=== PATIENT | female | born 1990 | race Caucasian/White ===

== ENCOUNTER → 2019-04-16 14:24 | Outpatient (CLI) | payer OTHER, SELFPAY ==
[2019-04-16 14:44] LABS: Add Manual Diff / Slide Review NO; Basophils Absolute Auto 100 /uL (0-100); Basophils Percent Auto 0.8 % (0-2); Eosinophils Absolute Auto 100 /uL (0-450); Eosinophils Percent Auto 1.1 % (2-4); Hematocrit 40.9 % (36-46); Hemoglobin 13.4 g/dL (12.0-16.0); Lymphocytes Absolute Auto 2400 /uL (1100-4500); Lymphocytes Percent Auto 21.2 % (25-40); Mean Corpuscular HGB Conc 32.8 % (30-36); Mean Corpuscular Hemoglobin 27.2 PG (26-34); Mean Corpuscular Volume 82.9 fL (80-100); Monocytes Absolute Auto 700 /uL (0-900); Monocytes Percent Auto 6.4 % (3-14); Neutrophils Absolute Auto 7900 /uL (1500-7000); Neutrophils Percent Auto 70.5 % (50-75); Platelet Count 389 X10^3/uL (150-400); Red Blood Cell Count 4.94 X10^6/uL (4.0-5.2); Red Cell Distribution Width 20.3 % (11.6-14.8); White Blood Cell Count 11.2 X10^3/uL (4.5-11.0)
[2019-04-16 14:52] LABS: Alanine Aminotransferase 36 IU/L (<35); Albumin 4.4 g/dL (3.5-5.0); Albumin Globulin Ratio 1.5 (1.0-2.8); Alkaline Phosphatase 99 U/L (38-126); Aspartate Aminotransferase 28 IU/L (14-36); BUN Creatinine Ratio 21.3 (6-22); Bilirubin Total 0.4 mg/dL (0.2-1.3); Blood Urea Nitrogen 17 mg/dL (7-17); Calcium 9.4 mg/dL (8.4-10.2); Carbon Dioxide 29 mmol/L (22-32); Chloride 102 mmol/L (98-107); Estimated Glomerular Filt Rate > 60.0 mL/min (>60); Globulin 2.9 g/dL (1.7-4.1); Glucose 106 mg/dL (70-100); HEMOLYSIS < 15 (0-50); Potassium 3.8 mmol/L (3.4-5.1); Sodium 138 mmol/L (137-145); Total Protein 7.3 g/dL (6.3-8.2)
[2019-04-16 15:11] LABS: Anisocytosis 2+; HEMOLYSIS 33 (0-50); Hypochromasia 1+; Iron 79 ug/dL (37-170)
[2019-04-16 15:21] LABS: Percent Iron Saturation 17 % (15-50); Total Iron Binding Capacity 455 ug/dL (265-497); Transferrin 391 mg/dL (206-381)
[2019-04-16 15:27] LABS: Ferritin 11.2 ng/mL (6.27-137)
== END ==
PROVIDERS: PCP Physician Assistant; Visit Provider Internal Medicine Hematology & Oncology
DX: D50.9 Iron deficiency anemia, unspecified (principal)
CPT/HCPCS: 36415; 80053; 82728; 83540; 83550; 85025

== ENCOUNTER 2019-05-05 18:24 | Emergency (ER) | payer OTHER, SELFPAY ==
[2019-05-05 18:30] VITALS: BP 145/97; PULSE 73; RESP 20; TEMP 36.7; O2SAT 100
--- NOTE | 2019-05-05 18:57 | ED.GENADULT ---
HPI - General Adult General Chief complaint: Vaginal Bleeding Stated complaint: Vaginal bleeding x10 days Time Seen by Provider: 05/05/19 18:36 Source: patient Mode of arrival: Ambulatory Limitations: no limitations History of Present Illness HPI narrative: 29-year-old female here for evaluation approximately 10 days of vaginal bleeding. She states that it is heavy bleeding. Having to change a pad every several hours. She states she has had heavy abnormal vaginal bleeding in the past where her blood counts have dropped. She states she has never had a blood transfusion because of this. She is not currently on control. States she has been on control in the past but it was ?too strong for me ?her last menstrual cycle was several months ago. States she is normally very abnormal with her menses. Has an appointment with shuttle car operator next week. Related Data Home Medications Medication Instructions Recorded Confirmed ferrous sulfate [iron] 65 mg DAILY 01/07/19 03/22/19 norgestimate-ethinyl estradiol 1 tab DAILY 02/18/19 03/22/19 [Previfem] Previous Rx's Medication Instructions Recorded amoxicillin 875 mg-potassium 1 tab PO BID #20 tab 03/22/19 clavulanate 125 mg tablet norgestimate-ethinyl estradiol 1 tab PO DAILY #28 tab 05/05/19 [Ortho Tri-Cyclen (28)] Allergies Allergy/AdvReac Type Severity Reaction Status Date / Time No Known Drug Allergies Allergy Verified 03/22/19 19:56 Review of Systems Constitutional Constitutional: Denies fever(s) Cardiovascular Cardiovascular: Denies chest pain and Denies dyspnea Respiratory Respiratory: Denies dyspnea Gastrointestinal Gastrointestinal: Denies abdominal pain Genitourinary Genitourinary: Denies dysuria Comments: Heavy vaginal bleeding Musculoskeletal Musculoskeletal: Denies myalgias and Denies arthralgias Integumentary/Breasts Skin/Breast: Denies rash Hematologic/Lymphatic Hematologic/Lymphatic: Denies easy bleeding and Denies easy bruising Patient History Medical History Menorrhagia (Acute) Surgical History (Updated 02/22/19 @ 18:09 by Aramis Parish MD) [place] teeth removed (Acute) Family History (Updated 01/07/19 @ 16:01 by Aramis Parish MD) Mother Anemia Sister Anemia Father Non Hodgkin's lymphoma Social History Smoking Status: Never smoker alcohol intake: current substance use type: does not use Smoking Status: Never smoker alcohol intake frequency: a few times a week Exam Initial Vital Signs Initial Vital Signs: Vital Signs Temperature 98.1 F 05/05/19 18:30 Pulse Rate 73 05/05/19 18:30 Respiratory Rate 20 05/05/19 18:30 Blood Pressure 145/97 H 05/05/19 18:30 Pulse Oximetry 100 05/05/19 18:30 Const General: cooperative and comfortable Orientation: alert and awake HENMT Head: normal to inspection and normocephalic Resp Effort & Inspection: normal respiratory effort Cardio Rate: regular rate GI Inspection: non-distended Skin Lesions: no lesions Rashes: no rashes Neuro General: alert and awake Cognition: normal cognition Speech: speech normal Extrem General: normal to inspection and capillary refill normal Course Orders Ordered: ED Orders 05/05/19 18:52 CBC Auto Diff [Complete Blood Count AUTO DIFF] Stat Vital Signs Vital signs: Vital Signs - 8 hr 05/05/19 18:30 05/05/19 20:28 Temperature 98.1 F Pulse Rate 73 67 Respiratory Rate 20 Blood Pressure 145/97 H 152/92 H Pulse Oximetry 100 97 Medical Decision Making Lab Data Lab results reviewed: Yes I reviewed the patient's lab results. Result diagrams: 05/05/19 18:52 Labs: Lab Results 05/05/19 Range/Units 18:52 WBC 10.6 (4.5-11.0) X10^3/uL RBC 4.78 (4.0-5.2) X10^6/uL Hgb 13.4 (12.0-16.0) g/dL Hct 40.5 (36-46) % MCV 84.8 (80-100) fL MCH 28.1 (26-34) PG MCHC 33.2 (30-36) % RDW 15.7 H (11.6-14.8) % Plt Count 381 (150-400) X10^3/uL Neut % (Auto) 68.6 (50-75) % Lymph % (Auto) 21.8 L (25-40) % [place] % (Auto) 7.6 (3-14) % Eos % (Auto) 1.4 L (2-4) % Baso % (Auto) 0.6 (0-2) % Neut # (Auto) 7300 H (7512-2993) /uL Lymph # (Auto) 2300 (7380-7692) /uL [place] # (Auto) 800 (0-900) /uL Eos # (Auto) 200 (0-450) /uL Baso # (Auto) 100 (0-100) /uL Point of Care Testing Test Results Negative Urine Dip Bedside Urine Glucose Negative Bedside Urine Bilirubin - Negative Bedside Urine Ketone - Negative Urine Specific [place] 1.015 Bedside Urine Occult Blood - Negative Bedside Urine pH 7.0 Bedside Urine Protein - Negative Bedside Urine Urobilinogen - Negative Bedside Urine Nitrite - Negative Bedside Urine Leukocytes - Negative Esterase Point of care testing: Point of Care Testing Test Results Negative Urine Dip Bedside Urine Glucose Negative Bedside Urine Bilirubin - Negative Bedside Urine Ketone - Negative Urine Specific [place] 1.015 Bedside Urine Occult Blood - Negative Bedside Urine pH 7.0 Bedside Urine Protein - Negative Bedside Urine Urobilinogen - Negative Bedside Urine Nitrite - Negative Bedside Urine Leukocytes - Negative Esterase MDM Narrative Medical decision making narrative: test negative, CBC is unremarkable. Patient stated that she did not want an ultrasound today. She would rather wait until next week until she sees her shuttle car operator. Had a discussion with her regarding her symptoms. Stated that we could start her on control to see that is not slow down her bleeding or she could wait until next week to see her shuttle car operator. She states she would rather start control today. No indication for further workup here in the emergency department she was given return precautions. She expressed understanding and agreement plan. Discharge Plan Departure Patient Disposition: Home Clinical Impression: Vaginal bleeding Discharge Date/Time: 05/05/19 20:30 Instructions: DI for Vaginal Bleeding Activity Restrictions/Additional Instructions: Keep all of your medical appointments. Return to the emergency department for any new or worsening symptoms Prescriptions: New norgestimate-ethinyl estradiol [Ortho Tri-Cyclen (28)] 0.18/0.215/0.25 mg-35 mcg (28) tablet 1 tab PO DAILY Qty: 28 RF: 0 No Action amoxicillin-pot clavulanate [Augmentin] 875-125 mg tablet 1 tab PO BID Qty: 20 RF: 0 ferrous sulfate [iron] 325 mg (65 mg iron) Tablet 65 mg DAILY RF: 0 norgestimate-ethinyl estradiol [Previfem] 0.25-35 mg-mcg Tablet 1 tab DAILY RF: 0 Referrals: Juan Couch PA-C [Primary Care Provider] -
[2019-05-05 19:01] LABS: Add Manual Diff / Slide Review NO; Basophils Absolute Auto 100 /uL (0-100); Basophils Percent Auto 0.6 % (0-2); Eosinophils Absolute Auto 200 /uL (0-450); Eosinophils Percent Auto 1.4 % (2-4); Hematocrit 40.5 % (36-46); Hemoglobin 13.4 g/dL (12.0-16.0); Lymphocytes Absolute Auto 2300 /uL (1100-4500); Lymphocytes Percent Auto 21.8 % (25-40); Mean Corpuscular HGB Conc 33.2 % (30-36); Mean Corpuscular Hemoglobin 28.1 PG (26-34); Mean Corpuscular Volume 84.8 fL (80-100); Monocytes Absolute Auto 800 /uL (0-900); Monocytes Percent Auto 7.6 % (3-14); Neutrophils Absolute Auto 7300 /uL (1500-7000); Neutrophils Percent Auto 68.6 % (50-75); Platelet Count 381 X10^3/uL (150-400); Red Blood Cell Count 4.78 X10^6/uL (4.0-5.2); Red Cell Distribution Width 15.7 % (11.6-14.8); White Blood Cell Count 10.6 X10^3/uL (4.5-11.0)
[2019-05-05 20:28] VITALS: BP 152/92; PULSE 67; O2SAT 97
== END 2019-05-05 20:30 | disposition home or self-care (01) ==
PROVIDERS: Emergency Provider Emergency Medicine; PCP Physician Assistant
DX: N93.9 Abnormal uterine and vaginal bleeding, unspecified (principal)
CPT/HCPCS: 36415; 81003; 81025; 85025; 99283

== ENCOUNTER → 2019-07-12 17:11 | Outpatient (CLI) | payer OTHER, SELFPAY ==
[2019-07-12 17:29] LABS: Add Manual Diff / Slide Review NO; Basophils Absolute Auto 100 /uL (0-100); Basophils Percent Auto 0.6 % (0-2); Eosinophils Absolute Auto 100 /uL (0-450); Eosinophils Percent Auto 0.7 % (2-4); Hematocrit 41.3 % (36-46); Hemoglobin 13.9 g/dL (12.0-16.0); Lymphocytes Absolute Auto 2400 /uL (1100-4500); Lymphocytes Percent Auto 15.7 % (25-40); Mean Corpuscular HGB Conc 33.6 % (30-36); Mean Corpuscular Hemoglobin 29.3 PG (26-34); Mean Corpuscular Volume 87.2 fL (80-100); Monocytes Absolute Auto 800 /uL (0-900); Neutrophils Absolute Auto 11900 /uL (1500-7000); Platelet Count 400 X10^3/uL (150-400); Red Blood Cell Count 4.74 X10^6/uL (4.0-5.2); Red Cell Distribution Width 14.9 % (11.6-14.8); White Blood Cell Count 15.2 X10^3/uL (4.5-11.0)
[2019-07-12 17:40] LABS: Alanine Aminotransferase 55 IU/L (<35); Albumin 4.4 g/dL (3.5-5.0); Albumin Globulin Ratio 1.3 (1.0-2.8); Alkaline Phosphatase 82 U/L (38-126); Aspartate Aminotransferase 30 IU/L (14-36); BUN Creatinine Ratio 22.5 (6-22); Bilirubin Total 0.3 mg/dL (0.2-1.3); Blood Urea Nitrogen 18 mg/dL (7-17); Calcium 9.8 mg/dL (8.4-10.2); Carbon Dioxide 28 mmol/L (22-32); Chloride 98 mmol/L (98-107); Estimated Glomerular Filt Rate > 60.0 mL/min (>60); Globulin 3.3 g/dL (1.7-4.1); Glucose 121 mg/dL (70-100); HEMOLYSIS < 15 (0-50); Potassium 4.1 mmol/L (3.4-5.1); Sodium 136 mmol/L (137-145); Total Protein 7.7 g/dL (6.3-8.2)
[2019-07-12 18:12] LABS: HEMOLYSIS < 15 (0-50); Iron 56 ug/dL (37-170)
[2019-07-12 18:16] LABS: Ferritin 10 ng/mL (6-137)
[2019-07-12 18:24] LABS: Percent Iron Saturation 12 % (15-50); Total Iron Binding Capacity 463 ug/dL (265-497); Transferrin 404 mg/dL (206-381)
== END ==
PROVIDERS: PCP Physician Assistant; Referring Provider Internal Medicine Hematology & Oncology; Visit Provider Internal Medicine Hematology & Oncology
DX: D50.9 Iron deficiency anemia, unspecified (principal)
CPT/HCPCS: 36415; 80053; 82728; 83540; 83550; 85025

== ENCOUNTER → 2019-10-04 15:05 | Outpatient (CLI) | payer OTHER, SELFPAY ==
[2019-10-04 16:20] LABS: Add Manual Diff / Slide Review NO; Basophils Absolute Auto 100 /uL (0-100); Basophils Percent Auto 0.7 % (0-2); Eosinophils Absolute Auto 100 /uL (0-450); Eosinophils Percent Auto 0.8 % (2-4); Hematocrit 41.7 % (36-46); Hemoglobin 13.5 g/dL (12.0-16.0); Lymphocytes Absolute Auto 2300 /uL (1100-4500); Lymphocytes Percent Auto 18.9 % (25-40); Mean Corpuscular HGB Conc 32.3 % (30-36); Mean Corpuscular Volume 89.9 fL (80-100); Monocytes Absolute Auto 800 /uL (0-900); Monocytes Percent Auto 6.7 % (3-14); Neutrophils Absolute Auto 8900 /uL (1500-7000); Neutrophils Percent Auto 72.9 % (50-75); Platelet Count 398 X10^3/uL (150-400); Red Blood Cell Count 4.64 X10^6/uL (4.0-5.2); Red Cell Distribution Width 15.8 % (11.6-14.8); White Blood Cell Count 12.3 X10^3/uL (4.5-11.0)
[2019-10-04 16:40] LABS: HEMOLYSIS < 15 (0-50); Iron 83 ug/dL (37-170)
[2019-10-04 16:42] LABS: Alanine Aminotransferase 42 IU/L (<35); Albumin 4.2 g/dL (3.5-5.0); Albumin Globulin Ratio 1.4 (1.0-2.8); Alkaline Phosphatase 72 U/L (38-126); Aspartate Aminotransferase 27 IU/L (14-36); BUN Creatinine Ratio 27.1 (6-22); Bilirubin Total 0.3 mg/dL (0.2-1.3); Blood Urea Nitrogen 19 mg/dL (7-17); Calcium 9.3 mg/dL (8.4-10.2); Carbon Dioxide 28 mmol/L (22-32); Chloride 100 mmol/L (98-107); Estimated Glomerular Filt Rate > 60.0 mL/min (>60); Globulin 3.1 g/dL (1.7-4.1); Glucose 106 mg/dL (70-100); HEMOLYSIS < 15 (0-50); Sodium 135 mmol/L (137-145); Total Protein 7.3 g/dL (6.3-8.2)
[2019-10-04 16:51] LABS: Percent Iron Saturation 18 % (15-50); Total Iron Binding Capacity 466 ug/dL (265-497); Transferrin 407 mg/dL (206-381)
[2019-10-04 17:19] LABS: Ferritin 8 ng/mL (6-137)
== END ==
PROVIDERS: PCP Physician Assistant; Referring Provider Internal Medicine Hematology & Oncology; Visit Provider Internal Medicine Hematology & Oncology
DX: D50.9 Iron deficiency anemia, unspecified (principal)
CPT/HCPCS: 36415; 80053; 82728; 83540; 83550; 85025

== ENCOUNTER → 2019-12-29 13:42 | Oncology outpatient (ONC) | payer OTHER, SELFPAY ==
[2019-01-07 15:09] VITALS: BP 139/89; PULSE 87; RESP 18; TEMP 36.7; O2SAT 97
--- NOTE | 2019-01-07 15:44 | P.CONONC_ITS ---
History of Present Illness - Data of Consult Patient: new to practice Consult date: 01/07/19 Requesting Physician: Juan Couch PA-C Primary Care Provider: Juan Couch PA-C - Consult Narrative Reason for consult: Iron deficiency anemia Narrative: Alexia Randle is a 28 year old female. Patient herself was not aware of previous history of anemia. But she said probably she was anemic. Patient said that she has had abnormal menstrual periods all her life. Her periods have been irregular and heavy. On 11/22/2018, she was evaluated and [facility] because of the abnormal menstrual periods. Laboratory tests showed WBC 10.9, hemoglobin 9.7, hematocrit 30.5, MCV 87.9, platelets 378. Iron 83, total iron binding capacity 574, and iron saturation 14%. Patient was prescribed po methergine and Loestrin-Fe. Ultrasound of the pelvis showed thickened heterogeneous endometrium, some med endometrium vascularity of unknown significance, and normal ovaries. There of the patient has been started on oral iron supplementation with iron sulfate 1 pill once a day. Patient tolerated the oral iron pills well. He is also being followed by gncologogist Jersey Adame. She then started progesteone bid. According to patient, endometrial polyps was suspected. Patient most likely will need surgical management. She came in here today accompanied by her . She reported significant low energy. She gets out of breath even going up stairs. Her said ?this is incredibly unlike her?. She gets worn out easily. Her HR skyrocketed and jumped up to 150-160.. In addition patient also reported low appetite. She denies any swallowing difficulties. She denies any unusual craving. She denies chest pain. She denies any abdominal pain. She denies any blood in the stool. Most recent laboratory tests on 01/01/2019 showed WBC 10.3, hemoglobin 8.2, hematocrit 28.4, MCV 77.6, platelets 490. She was referred here for consideration of intravenous iron infusion. CC: Aramis Parish MD Home Medications and Allergies Home Medications Medication Instructions Recorded Confirmed Type ferrous sulfate [iron] 65 mg DAILY 01/07/19 01/07/19 History progesterone micronized 10 mg BID 01/07/19 01/07/19 History Allergies Allergy/AdvReac Type Severity Reaction Status Date / Time No Known Drug Allergies Allergy Verified 01/07/19 15:14 Medical History - Medical, Surgical, Family History Medical History: Medical History (Updated 01/07/19 @ 16:27 by Aramis Parish MD) Menorrhagia [place] teeth removed Family History: Family History (Updated 01/07/19 @ 16:01 by Aramis Parish MD) Mother Anemia Sister Anemia Father Non Hodgkin's lymphoma - Social History Smoking Status: Never smoker Substance Use Type: does not use Alcohol Intake: current Alcohol Intake Frequency: a few times a week Review of Systems - Patient Self-Reported Symptoms SR Constitution: Fever, Chills, Weight loss/gain SR respiratory issues: Shortness of breath SR Musculoskeletal issues: Muscle weakness SR Neuro issues: Lightheaded/dizzy All systems PM: reviewed and no additional remarkable complaints except as stated Exam Vital signs: Vital Signs Temp Pulse Resp BP Pulse Ox 01/07/19 15:09 98.1 F 87 18 139/89 97 Intake and Output 01/06/19 01/07/19 01/07/19 23:59 07:59 15:59 Other: Weight 97.5 kg Patient Weight 01/07/19 23:59 Weight 97.5 kg Narrative: ECOG 1 Gen: WDWN, NAD, pleasant and cooperative, accompanied by her HEENT: NCAT, EOMI, PERRLA, anicteric sclera. Neck: Supple, No palpable thyromegaly or lymphadenopathy. Respiratory: CTAB, no wheezes audible. No JVD Cardiovascular: RRR, S1 and S2 normal, no M/G/R. Abdomen: Soft, NTND, BS normal, no palpable organomegaly Extremities: No LE pitting edema. Lymphatic: no palpable lymph nodes in the neck, axillae, or groins. Neurological: AOx3, CN II-XII grossly intact. No focal motor or sensory deficit. Psychiatric: Good judgment and insight; normal affect; normal thought process; cooperative, no depression, no anxiety. Results - Labs Reviewed. Assessment and Plan (1) Iron (Fe) deficiency anemia Overview: 28 year old with iron deficiency most likely due to menorrhagia. Plan: Venofer 200 mg iv weekly x 5 RTC in 6 weeks, MD visit, CBC, CMP, iron panel, ferritin. (2) Menorrhagia She has endometrial polyps according to patient. She is now taking Progesterone, and is being followed by Raphael Green, interior decorator painting. Likely will need surgery
[2019-01-11] MEDS: IRON SUCROSE 200 MG in SODIUM CHLORIDE 0.9% 100 ML 220 ML IV (14:13)
[2019-01-11 15:36] VITALS: BP 139/76; PULSE 79; RESP 16; TEMP 36.8; O2SAT 100
[2019-01-18] MEDS: IRON SUCROSE 200 MG in SODIUM CHLORIDE 0.9% 100 ML 220 ML IV (13:21)
[2019-01-18 13:33] VITALS: BP 134/78; PULSE 73; RESP 16; TEMP 36.9; O2SAT 100
[2019-01-26] MEDS: IRON SUCROSE 200 MG in SODIUM CHLORIDE 0.9% 100 ML 220 ML IV (15:38)
[2019-02-01 14:24] VITALS: BP 138/78; PULSE 56; RESP 16; TEMP 36.7; O2SAT 98
[2019-02-01] MEDS: IRON SUCROSE 200 MG in SODIUM CHLORIDE 0.9% 100 ML 220 ML IV (14:38)
[2019-02-08] MEDS: IRON SUCROSE 200 MG in SODIUM CHLORIDE 0.9% 100 ML 220 ML IV (14:10)
[2019-02-08 14:50] VITALS: BP 130/78; PULSE 66; RESP 16; TEMP 36.7; O2SAT 97
[2019-02-15 13:03] LABS: Add Manual Diff / Slide Review NO; Basophils Absolute Auto 100 /uL (0-100); Basophils Percent Auto 0.7 % (0-2); Eosinophils Absolute Auto 100 /uL (0-450); Eosinophils Percent Auto 0.8 % (2-4); Hematocrit 41.5 % (36-46); Lymphocytes Absolute Auto 2600 /uL (1100-4500); Lymphocytes Percent Auto 20.5 % (25-40); Mean Corpuscular HGB Conc 31.4 % (30-36); Mean Corpuscular Hemoglobin 24.8 PG (26-34); Mean Corpuscular Volume 78.9 fL (80-100); Monocytes Absolute Auto 500 /uL (0-900); Monocytes Percent Auto 4.2 % (3-14); Neutrophils Absolute Auto 9200 /uL (1500-7000); Neutrophils Percent Auto 73.8 % (50-75); Platelet Count 389 X10^3/uL (150-400); Red Blood Cell Count 5.26 X10^6/uL (4.0-5.2); Red Cell Distribution Width 28.4 % (11.6-14.8); White Blood Cell Count 12.5 X10^3/uL (4.5-11.0)
[2019-02-15 13:09] LABS: Alanine Aminotransferase 29 IU/L (9-52); Albumin 4.6 g/dL (3.5-5.0); Albumin Globulin Ratio 1.4 (1.0-2.8); Alkaline Phosphatase 90 U/L (38-126); Aspartate Aminotransferase 26 IU/L (14-36); BUN Creatinine Ratio 17.5 (6-22); Bilirubin Total 0.4 mg/dL (0.2-1.3); Blood Urea Nitrogen 14 mg/dL (7-17); Calcium 9.9 mg/dL (8.4-10.2); Carbon Dioxide 28 mmol/L (22-32); Chloride 99 mmol/L (98-107); Estimated Glomerular Filt Rate > 60.0 mL/min (>60); Globulin 3.2 g/dL (1.7-4.1); Glucose 97 mg/dL (70-100); HEMOLYSIS < 15 (0-50); Potassium 3.7 mmol/L (3.4-5.1); Sodium 139 mmol/L (137-145); Total Protein 7.8 g/dL (6.3-8.2)
[2019-02-15 13:55] LABS: HEMOLYSIS 15 (0-50); Iron 92 ug/dL (37-170)
[2019-02-15 13:59] LABS: Anisocytosis 3+; Poikilocytosis 1+
[2019-02-15 14:00] LABS: RBC Morphology See
[2019-02-15 14:05] LABS: Percent Iron Saturation 19 % (15-50); Total Iron Binding Capacity 480 ug/dL (265-497); Transferrin 413 mg/dL (206-381)
[2019-02-18 15:34] VITALS: BP 134/84; PULSE 72; RESP 18; TEMP 36.8; O2SAT 98
--- NOTE | 2019-02-18 16:07 | P.PNONC_ITS ---
PN -Subjective Interval history: ID/CC: 58 year old with iron deficiency Hemotology History: Alexia Randle is a 28 year old female. Patient herself was not aware of previous history of anemia. But she said probably she was anemic. Patient said that she has had abnormal menstrual periods all her life. Her periods have been irregular and heavy. On 11/22/2018, she was evaluated at [facility] because of the abnormal menstrual periods. Laboratory tests showed WBC 10.9, hemoglobin 9.7, hematocrit 30.5, MCV 87.9, platelets 378. Iron 83, total iron binding capacity 574, and iron saturation 14%. Patient was prescribed po methergine and Loestrin-Fe. Ultrasound of the pelvis showed thickened heterogeneous endometrium, some med endometrium vascularity of unknown significance, and normal ovaries. Therefore, the patient has been started on oral iron supplementation with iron sulfate 1 pill once a day. Patient tolerated the oral iron pills well. He is also being followed by tread tuber machine operator Jersey Adame. She then started progesteone bid. According to patient, endometrial polyps was suspected. Patient most likely will need surgical management. She was seen here on 01/07/2019. She came accompanied by her . She reported significant low energy. She gets out of breath even going up stairs. Her said ?this is incredibly unlike her?. She gets worn out easily. Her HR skyrocketed and jumped up to 150-160.. In addition patient also reported low appetite. She denies any swallowing difficulties. She denies any unusual craving. She denies chest pain. She denies any abdominal pain. She denies any blood in the stool. Laboratory tests on 01/01/2019 showed WBC 10.3, hemoglobin 8.2, hematocrit 28.4, MCV 77.6, platelets 490. Interim Events She has been seen by her tread tuber machine operator. She was started on Previfem (norgestimate-ethynyl estradiol) 1# daily Her vaginal bleeding has stopped. She has some water retention. She underwent venofer infusion 200 mg weekly x 5 form 01/11/2019 through 02/08/2019. She said no more shortness of breath. No chest pain. - Patient Self-Reported Symptoms SR Constitution: Weight loss/gain SR respiratory issues: Shortness of breath SR Musculoskeletal issues: Cold hands or feet SR Neuro issues: Lightheaded/dizzy - Additional ROS All systems PM: reviewed and no additional remarkable complaints except as stated Home Medications and Allergies Home Medications Medication Instructions Recorded Confirmed Type ferrous sulfate [iron] 65 mg DAILY 01/07/19 02/18/19 History norgestimate-ethinyl estradiol 1 tab DAILY 02/18/19 02/18/19 History [Previfem] Allergies Allergy/AdvReac Type Severity Reaction Status Date / Time No Known Drug Allergies Allergy Verified 01/07/19 15:14 Exam Vital signs: Vital Signs Temp Pulse Resp BP Pulse Ox 02/18/19 15:34 98.2 F 72 18 134/84 98 Intake and Output 02/18/19 02/18/19 02/18/19 07:59 15:59 23:59 Other: Weight 97.1 kg Patient Weight 02/18/19 23:59 Weight 97.1 kg - Constitutional positive no acute distress, positive average body habitus, positive cooperative - Routine HEENT Exam Head: Present: normocephalic, atraumatic Eye: Present: EOMI, PERRL, normal accommodation. Absent: conjunctival icterus ENT: Present: mucous membranes moist - Routine Neck Exam Present: supple. Absent: lymphadenopathy, thyromegaly - Routine Chest/Breast/Axilla Exam Axillae: Absent: lymphadenopathy - Routine Respiratory Exam Present: Clear to auscultation bilaterally. Absent: wheezes - Routine Cardiovascular Exam Present: RRR, S1, S2. Absent: murmur, gallop, rubs - Routine Abdominal Exam Present: soft, normoactive bowel sounds. Absent: tenderness, distended, organomegaly - Routine Extremities Exam Absent: edema - Routine Neurological Exam Present: alert, oriented X3, CN II-XII intact. Absent: sensory deficit, motor deficit - Routine Psychiatric Exam Present: normal affect Results - Labs Laboratory Last Values WBC 12.5 X10^3/uL (4.5-11.0) H 02/15/19 12:45 RBC 5.26 X10^6/uL (4.0-5.2) H 02/15/19 12:45 Hgb 13.0 g/dL (12.0-16.0) 02/15/19 12:45 Hct 41.5 % (36-46) 02/15/19 12:45 MCV 78.9 fL (80-100) L 02/15/19 12:45 MCH 24.8 PG (26-34) L 02/15/19 12:45 MCHC 31.4 % (30-36) 02/15/19 12:45 RDW 28.4 % (11.6-14.8) H 02/15/19 12:45 Plt Count 389 X10^3/uL (150-400) 02/15/19 12:45 Neut % (Auto) 73.8 % (50-75) 02/15/19 12:45 Lymph % (Auto) 20.5 % (25-40) L 02/15/19 12:45 [facility] % (Auto) 4.2 % (3-14) 02/15/19 12:45 Eos % (Auto) 0.8 % (2-4) L 02/15/19 12:45 Baso % (Auto) 0.7 % (0-2) 02/15/19 12:45 Neut # (Auto) 9200 /uL (0792-5848) H 02/15/19 12:45 Lymph # (Auto) 2600 /uL (7304-9565) 02/15/19 12:45 [facility] # (Auto) 500 /uL (0-900) 02/15/19 12:45 Eos # (Auto) 100 /uL (0-450) 02/15/19 12:45 Baso # (Auto) 100 /uL (0-100) 02/15/19 12:45 RBC Morphology See 02/15/19 12:45 Poikilocytosis 1+ H 02/15/19 12:45 Anisocytosis 3+ H 02/15/19 12:45 Sodium 139 mmol/L (137-145) 02/15/19 12:45 Potassium 3.7 mmol/L (3.4-5.1) 02/15/19 12:45 Chloride 99 mmol/L (98-107) 02/15/19 12:45 Carbon Dioxide 28 mmol/L (22-32) 02/15/19 12:45 BUN 14 mg/dL (7-17) 02/15/19 12:45 Creatinine 0.80 mg/dL (0.52-1.04) 02/15/19 12:45 Estimated GFR > 60.0 mL/min (>60) 02/15/19 12:45 BUN/Creatinine Ratio 17.5 (6-22) 02/15/19 12:45 Glucose 97 mg/dL (70-100) 02/15/19 12:45 Calcium 9.9 mg/dL (8.4-10.2) 02/15/19 12:45 Iron 92 ug/dL (37-170) 02/15/19 12:45 TIBC 480 ug/dL (265-497) 02/15/19 12:45 % Saturation 19 % (15-50) 02/15/19 12:45 Transferrin 413 mg/dL (206-381) H 02/15/19 12:45 Ferritin 107.0 ng/mL (6.27-137) 02/15/19 12:45 Total Bilirubin 0.4 mg/dL (0.2-1.3) 02/15/19 12:45 AST 26 IU/L (14-36) 02/15/19 12:45 ALT 29 IU/L (9-52) 02/15/19 12:45 Alkaline Phosphatase 90 U/L (38-126) 02/15/19 12:45 Total Protein 7.8 g/dL (6.3-8.2) 02/15/19 12:45 Albumin 4.6 g/dL (3.5-5.0) 02/15/19 12:45 Globulin 3.2 g/dL (1.7-4.1) 02/15/19 12:45 Albumin/Globulin Ratio 1.4 (1.0-2.8) 02/15/19 12:45 Assessment and Plan (1) Iron (Fe) deficiency anemia Overview: 28 year old with iron deficiency most likely due to menorrhagia. Assessment: Status post venofer 200 mg iv weekly x 5 Plan: RTC in 3 months, CBC, CMP, iron panel, ferritin. (2) Menorrhagia She has endometrial polyps according to patient. She is now taking Progesterone, and is being followed by Raphael Green, tread tuber machine operator.
--- NOTE | 2019-04-21 15:49 | ONC.SCHED ---
Moved appointment from 04/29 to 06/03/19.
[2019-06-03 16:23] VITALS: BP 141/82; PULSE 65; RESP 18; TEMP 36.3; O2SAT 98
--- NOTE | 2019-06-03 16:32 | P.PNONC_ITS ---
PN -Subjective Interval history: ID/CC: 29 year old with iron deficiency Hemotology History: Alexia Randle is a 29 year old female. Patient herself was not aware of previous history of anemia. But she said probably she was anemic. Patient said that she has had abnormal menstrual periods all her life. Her periods have been irregular and heavy. On 11/22/2018, she was evaluated at [facility] because of the abnormal menstrual periods. Laboratory tests showed WBC 10.9, hemoglobin 9.7, hematocrit 30.5, MCV 87.9, platelets 378. Iron 83, total iron binding capacity 574, and iron saturation 14%. Patient was prescribed po methergine and Loestrin-Fe. Ultrasound of the pelvis showed thickened heterogeneous endometrium, some med endometrium vascularity of unknown significance, and normal ovaries. Therefore, the patient has been started on oral iron supplementation with iron sulfate 1 pill once a day. Patient tolerated the oral iron pills well. She is also being followed by central office supervisor Jersey Adame. She then started progesteone bid. According to patient, endometrial polyps was suspected. Patient most likely will need surgical management. She was seen here on 01/07/2019. She came accompanied by her . She reported significant low energy. She gets out of breath even going up stairs. Her said ?this is incredibly unlike her?. She gets worn out easily. Her HR skyrocketed and jumped up to 150-160. In addition patient also reported low appetite. She denies any swallowing difficulties. She denies any unusual craving. She denies chest pain. She denies any abdominal pain. She denies any blood in the stool. Laboratory tests on 01/01/2019 showed WBC 10.3, hemoglobin 8.2, hematocrit 28.4, MCV 77.6, platelets 490. She has been seen by her central office supervisor. She was started on Previfem (norgestimate-ethynyl estradiol) 1# daily Her vaginal bleeding has stopped. She has some water retention. She underwent venofer infusion 200 mg weekly x 5 form 01/11/2019 through 02/08/2019. Interim Events She came in here today by herself. She said that she felt a lot better after the iron infusion. She has better energy. She denies shortness of breath and denies chest pain. She is scheduled for endometrial polypectomy on Friday (06/07/2019) - Patient Self-Reported Symptoms SR Constitution: Weight loss/gain, Fatigue/Malaise SR ears, nose, mouth, throat issues: Congestion, Cough, Swollen glands SR respiratory issues: Cough, Shortness of breath SR Cardiovascular issues: Extreme swelling, Dizzy/lightheaded SR Gastrointestinal issues: Poor or no appetite, Constipation SR Musculoskeletal issues: Cold hands or feet SR Neuro issues: Headache, Lightheaded/dizzy - Additional ROS All systems PM: reviewed and no additional remarkable complaints except as stated Home Medications and Allergies Home Medications Medication Instructions Recorded Confirmed Type Multi Complete with Iron 1 tab DAILY 06/03/19 06/03/19 History Vitamin B-12 1 tab DAILY 06/03/19 06/03/19 History amlodipine-benazepril 1 cap PO DAILY 06/03/19 06/03/19 History cholecalciferol (vitamin D3) 2,000 unit PO DAILY 06/03/19 06/03/19 History [Vitamin D3] magnesium 200 mg PO DAILY 06/03/19 06/03/19 History omega [id number]-fish oil [Fish Oil] 1 cap PO DAILY 06/03/19 06/03/19 History Allergies Allergy/AdvReac Type Severity Reaction Status Date / Time No Known Drug Allergies Allergy Verified 03/22/19 19:56 Exam Vital signs: Vital Signs Temp Pulse Resp BP Pulse Ox 06/03/19 16:23 97.3 F L 65 18 141/82 H 98 Intake and Output 06/03/19 06/03/19 06/03/19 07:59 15:59 23:59 Other: Weight 102.8 kg Patient Weight 06/03/19 23:59 Weight 102.8 kg Narrative: Gen: WDWN, obese, NAD, pleasant and cooperative. HEENT: NCAT, EOMI, PERRLA, anicteric sclera. Neck: Supple, No palpable thyromegaly or lymphadenopathy. Respiratory: CTAB, no wheezes audible. No JVD Cardiovascular: RRR, S1 and S2 normal, no M/G/R. Abdomen: Soft, NTND, BS normal, no palpable organomegaly Extremities: No LE pitting edema. Lymphatic: no palpable lymph nodes in the neck, axillae, or groins. Neurological: AOx3, CN II-XII grossly intact. No focal motor or sensory deficit. Psychiatric: normal affect; normal thought process; no depression; no anxiety. Results - Labs Labs from 05/05/2019: WBC 10.6, HGB 13.4, HCT 40.5, MCV 84.8, PLT 381. Assessment and Plan (1) Iron (Fe) deficiency anemia Overview: 29 year old with iron deficiency most likely due to menorrhagia. Assessment: Status post venofer 200 mg iv weekly x 5 in -01/2019. She presents here today for scheduled follow-up visit. I reviewed the CBC results from 05/05/2019. The MCV has completely normalized. Patient does not have anemia. I talked with her that I will continue current surveillance. I will give her intravenous iron on an as needed basis. Patient is scheduled for surgical procedure to remove the endometrium polyps next Friday. I will see the patient 1 month after the surgery. Plan: RTC in 1 month, CBC, CMP, iron panel, ferritin. (2) Menorrhagia She has endometrial polyps according to patient. She is now taking Progesterone, and is being followed by Dr. Knight at [facility] in [facility]. Plan to undergo endometrial polyp removal on Friday.
[2019-07-02 17:10] LABS: Add Manual Diff / Slide Review NO; Basophils Absolute Auto 100 /uL (0-100); Basophils Percent Auto 0.5 % (0-2); Eosinophils Absolute Auto 100 /uL (0-450); Hematocrit 39.6 % (36-46); Hemoglobin 13.1 g/dL (12.0-16.0); Lymphocytes Absolute Auto 2300 /uL (1100-4500); Lymphocytes Percent Auto 18.7 % (25-40); Mean Corpuscular HGB Conc 33.2 % (30-36); Mean Corpuscular Hemoglobin 29.2 PG (26-34); Mean Corpuscular Volume 88.1 fL (80-100); Monocytes Absolute Auto 700 /uL (0-900); Monocytes Percent Auto 5.6 % (3-14); Neutrophils Absolute Auto 9200 /uL (1500-7000); Neutrophils Percent Auto 74.2 % (50-75); Platelet Count 409 X10^3/uL (150-400); Red Cell Distribution Width 15.3 % (11.6-14.8); White Blood Cell Count 12.4 X10^3/uL (4.5-11.0)
[2019-07-02 17:23] LABS: HEMOLYSIS < 15 (0-50); Iron 46 ug/dL (37-170)
[2019-07-02 17:24] LABS: Alanine Aminotransferase 56 IU/L (<35); Albumin 4.2 g/dL (3.5-5.0); Albumin Globulin Ratio 1.3 (1.0-2.8); Alkaline Phosphatase 78 U/L (38-126); Aspartate Aminotransferase 26 IU/L (14-36); BUN Creatinine Ratio 21.7 (6-22); Bilirubin Total 0.3 mg/dL (0.2-1.3); Blood Urea Nitrogen 13 mg/dL (7-17); Calcium 9.5 mg/dL (8.4-10.2); Carbon Dioxide 26 mmol/L (22-32); Chloride 101 mmol/L (98-107); Estimated Glomerular Filt Rate > 60.0 mL/min (>60); Globulin 3.2 g/dL (1.7-4.1); Glucose 129 mg/dL (70-100); HEMOLYSIS < 15 (0-50); Potassium 4.1 mmol/L (3.4-5.1); Sodium 138 mmol/L (137-145); Total Protein 7.4 g/dL (6.3-8.2)
[2019-07-02 17:33] LABS: Percent Iron Saturation 10 % (15-50); Total Iron Binding Capacity 461 ug/dL (265-497); Transferrin 385 mg/dL (206-381)
[2019-07-02 17:59] LABS: Ferritin 9.4 ng/mL (6.27-137)
--- NOTE | 2019-07-06 16:39 | ONC.PN ---
PN -Subjective Interval history: ID/CC: 29 year old with iron deficiency and menorrhagia Hemotology History: Alexia Randle is a 29 year old female. Patient herself was not aware of previous history of anemia. But she said probably she was anemic. Patient said that she has had abnormal menstrual periods all her life. Her periods have been irregular and heavy. On 11/22/2018, she was evaluated at [facility] because of the abnormal menstrual periods. Laboratory tests showed WBC 10.9, hemoglobin 9.7, hematocrit 30.5, MCV 87.9, platelets 378. Iron 83, total iron binding capacity 574, and iron saturation 14%. Patient was prescribed po methergine and Loestrin-Fe. Ultrasound of the pelvis showed thickened heterogeneous endometrium, some med endometrium vascularity of unknown significance, and normal ovaries. Therefore, the patient has been started on oral iron supplementation with iron sulfate 1 pill once a day. Patient tolerated the oral iron pills well. She is also being followed by pot maker Jersey Adame. She then started progesterone bid. According to patient, endometrial polyps was suspected. She was seen here on 01/07/2019. She came accompanied by her . She reported significant low energy. She gets out of breath even going up stairs. Her said ?this is incredibly unlike her?. She gets worn out easily. Her HR skyrocketed and jumped up to 150-160. In addition patient also reported low appetite. She denies any swallowing difficulties. She denies any unusual craving. She denies chest pain. She denies any abdominal pain. She denies any blood in the stool. Laboratory tests on 01/01/2019 showed WBC 10.3, hemoglobin 8.2, hematocrit 28.4, MCV 77.6, platelets 490. She has been seen by her pot maker. She was started on Previfem (norgestimate-ethynyl estradiol) 1# daily Her vaginal bleeding has stopped. She has some water retention. She underwent venofer infusion 200 mg weekly x 5 form 01/11/2019 through 02/08/2019. She said that she felt a lot better after the iron infusion. She has better energy. She denies shortness of breath and denies chest pain Treatment Summary 1. Venofer 200 mg iv qw x 5, 01/11/2019 - 02/08/2019 2. Hysteroscopy with MyoSure 07/01/2019 Interim Events Since her previous visit, she underwent on 07/01/2019, patient underwent hysteroscopy with MyoSure procedure by Dr. Matias Knight. The pathology showed benign endometrial polyps, background proliferative/disordered proliferative endometrium, and negative for hyperplasia, chronic endometritis, or malignancy. She came in here today accompanied by her . She said she does not have shortness of breath or chest pain. She does not feel tired. She does not feel any she palpitation. She does not have any abdominal pain. - Patient Self-Reported Symptoms SR Constitution: Weight loss/gain, Fatigue/Malaise SR ears, nose, mouth, throat issues: Congestion, Cough, Swollen glands SR respiratory issues: Cough, Shortness of breath SR Cardiovascular issues: Extreme swelling, Dizzy/lightheaded SR Gastrointestinal issues: Poor or no appetite, Constipation SR Musculoskeletal issues: Cold hands or feet SR Neuro issues: Headache, Lightheaded/dizzy - Additional ROS All systems PM: reviewed and no additional remarkable complaints except as stated Home Medications and Allergies Home Medications Medication Instructions Recorded Confirmed Type Multi Complete with Iron 1 tab DAILY 06/03/19 06/03/19 History Vitamin B-12 1 tab DAILY 06/03/19 06/03/19 History amlodipine-benazepril 1 cap PO DAILY 06/03/19 06/03/19 History cholecalciferol (vitamin D3) 2,000 unit PO DAILY 06/03/19 06/03/19 History [Vitamin D3] magnesium 200 mg PO DAILY 06/03/19 06/03/19 History omega 3-pdu-ezk-fish oil [Fish Oil] 1 cap PO DAILY 06/03/19 06/03/19 History metformin 500 mg PO BID 07/06/19 07/06/19 History spironolactone 50 mg PO BID 07/06/19 07/06/19 History Allergies Allergy/AdvReac Type Severity Reaction Status Date / Time No Known Drug Allergies Allergy Verified 03/22/19 19:56 Exam Vital signs: 07/06/19 17:12 Last Vital Signs Temp 98.6 F 07/06/19 16:41 Pulse 56 L 07/06/19 16:41 Resp 16 07/06/19 16:41 BP 147/93 H 07/06/19 16:41 Pulse Ox 99 07/06/19 16:41 ECOG 1 Narrative: Gen: WDWN, obese, NAD, pleasant and cooperative. HEENT: NCAT, EOMI, PERRLA, anicteric sclera. Neck: Supple, No palpable thyromegaly or lymphadenopathy. Respiratory: CTAB, no wheezes audible. No JVD Cardiovascular: RRR, S1 and S2 normal, no M/G/R. Abdomen: Soft, NTND, BS normal, no palpable organomegaly Extremities: No LE pitting edema. Lymphatic: no palpable lymph nodes in the neck, axillae Neurological: AOx3, CN II-XII grossly intact. No focal motor or sensory deficit. Psychiatric: normal affect; normal thought process; no depression; no anxiety. Results - Labs Laboratory Last Values WBC 12.4 X10^3/uL (4.5-11.0) H 07/02/19 16:24 RBC 4.50 X10^6/uL (4.0-5.2) 07/02/19 16:24 Hgb 13.1 g/dL (12.0-16.0) 07/02/19 16:24 Hct 39.6 % (36-46) 07/02/19 16:24 MCV 88.1 fL (80-100) 07/02/19 16:24 MCH 29.2 PG (26-34) 07/02/19 16:24 MCHC 33.2 % (30-36) 07/02/19 16:24 RDW 15.3 % (11.6-14.8) H 07/02/19 16:24 Plt Count 409 X10^3/uL (150-400) H 07/02/19 16:24 Neut % (Auto) 74.2 % (50-75) 07/02/19 16:24 Lymph % (Auto) 18.7 % (25-40) L 07/02/19 16:24 [place] % (Auto) 5.6 % (3-14) 07/02/19 16:24 Eos % (Auto) 1.0 % (2-4) L 07/02/19 16:24 Baso % (Auto) 0.5 % (0-2) 07/02/19 16:24 Neut # (Auto) 9200 /uL (5682-2844) H 07/02/19 16:24 Lymph # (Auto) 2300 /uL (4918-5172) 07/02/19 16:24 [place] # (Auto) 700 /uL (0-900) 07/02/19 16:24 Eos # (Auto) 100 /uL (0-450) 07/02/19 16:24 Baso # (Auto) 100 /uL (0-100) 07/02/19 16:24 RBC Morphology See 02/15/19 12:45 Poikilocytosis 1+ H 02/15/19 12:45 Anisocytosis 3+ H 02/15/19 12:45 Sodium 138 mmol/L (137-145) 07/02/19 16:24 Potassium 4.1 mmol/L (3.4-5.1) 07/02/19 16:24 Chloride 101 mmol/L (98-107) 07/02/19 16:24 Carbon Dioxide 26 mmol/L (22-32) 07/02/19 16:24 BUN 13 mg/dL (7-17) 07/02/19 16:24 Creatinine 0.60 mg/dL (0.52-1.04) 07/02/19 16:24 Estimated GFR > 60.0 mL/min (>60) 07/02/19 16:24 BUN/Creatinine Ratio 21.7 (6-22) 07/02/19 16:24 Glucose 129 mg/dL (70-100) H 07/02/19 16:24 Calcium 9.5 mg/dL (8.4-10.2) 07/02/19 16:24 Iron 46 ug/dL (37-170) 07/02/19 16:24 TIBC 461 ug/dL (265-497) 07/02/19 16:24 % Saturation 10 % (15-50) L 07/02/19 16:24 Transferrin 385 mg/dL (206-381) H 07/02/19 16:24 Ferritin 9.4 ng/mL (6.27-137) 07/02/19 16:24 Total Bilirubin 0.3 mg/dL (0.2-1.3) 07/02/19 16:24 AST 26 IU/L (14-36) 07/02/19 16:24 ALT 56 IU/L (<35) H 07/02/19 16:24 Alkaline Phosphatase 78 U/L (38-126) 07/02/19 16:24 Total Protein 7.4 g/dL (6.3-8.2) 07/02/19 16:24 Albumin 4.2 g/dL (3.5-5.0) 07/02/19 16:24 Globulin 3.2 g/dL (1.7-4.1) 07/02/19 16:24 Albumin/Globulin Ratio 1.3 (1.0-2.8) 07/02/19 16:24 Assessment and Plan (1) Iron (Fe) deficiency anemia Overview: 29 year old with iron deficiency most likely due to menorrhagia. Status post venofer 200 mg iv weekly x 5 in . Assessment: Patient underwent hysteroscopy with MyoSure procedure on June the 11/13/2019. I reviewed the labs from today. No macrocytic anemia. But serum iron storage was low. Her serum ferritin level was only 9.4. I believe that with the MyoSure procedure, the iron loss will be much less. With time, we will be able to see gnosticist of patient's iron storage. I would recommend that we repeat the iron status in 1 month and decide about if the patient will need intravenous iron infusion. Patient and her voiced understanding. Plan: RTC in 1 month, CBC, CMP, iron panel, ferritin. (2) Menorrhagia She has endometrial polyps according to patient. She is now status post MyoSure procedure on 07/01/2019. I encouraged her continue to follow up with Dr. Hamzah Mike.
[2019-07-06 16:41] VITALS: BP 147/93; PULSE 56; RESP 16; TEMP 37; O2SAT 99
[2019-07-30 16:04] LABS: Add Manual Diff / Slide Review NO; Basophils Absolute Auto 100 /uL (0-100); Basophils Percent Auto 0.4 % (0-2); Eosinophils Absolute Auto 100 /uL (0-450); Eosinophils Percent Auto 0.6 % (2-4); Hematocrit 41.6 % (36-46); Hemoglobin 13.7 g/dL (12.0-16.0); Lymphocytes Absolute Auto 2500 /uL (1100-4500); Lymphocytes Percent Auto 17.8 % (25-40); Mean Corpuscular Hemoglobin 28.6 PG (26-34); Mean Corpuscular Volume 86.6 fL (80-100); Monocytes Absolute Auto 700 /uL (0-900); Neutrophils Absolute Auto 10900 /uL (1500-7000); Neutrophils Percent Auto 76.2 % (50-75); Platelet Count 432 X10^3/uL (150-400); Red Cell Distribution Width 15.1 % (11.6-14.8); White Blood Cell Count 14.3 X10^3/uL (4.5-11.0)
[2019-07-30 16:14] LABS: Alanine Aminotransferase 52 IU/L (<35); Albumin 4.4 g/dL (3.5-5.0); Albumin Globulin Ratio 1.4 (1.0-2.8); Alkaline Phosphatase 75 U/L (38-126); Aspartate Aminotransferase 26 IU/L (14-36); BUN Creatinine Ratio 26.7 (6-22); Bilirubin Total 0.3 mg/dL (0.2-1.3); Blood Urea Nitrogen 16 mg/dL (7-17); Calcium 9.5 mg/dL (8.4-10.2); Carbon Dioxide 26 mmol/L (22-32); Chloride 100 mmol/L (98-107); Estimated Glomerular Filt Rate > 60.0 mL/min (>60); Globulin 3.1 g/dL (1.7-4.1); Glucose 96 mg/dL (70-100); HEMOLYSIS < 15 (0-50); Potassium 4.6 mmol/L (3.4-5.1); Sodium 134 mmol/L (137-145); Total Protein 7.5 g/dL (6.3-8.2)
[2019-07-30 16:50] LABS: Ferritin 11 ng/mL (6-137)
[2019-07-30 17:12] LABS: HEMOLYSIS < 15 (0-50); Iron 69 ug/dL (37-170)
[2019-07-30 17:23] LABS: Percent Iron Saturation 14 % (15-50); Total Iron Binding Capacity 477 ug/dL (265-497); Transferrin 398 mg/dL (206-381)
[2019-08-03 15:55] VITALS: BP 138/86; PULSE 94; RESP 18; TEMP 36.9; O2SAT 98
--- NOTE | 2019-08-03 16:04 | P.PNONC_ITS ---
PN -Subjective Interval history: ID/CC: 29 year old with iron deficiency and menorrhagia Hemotology History: Alexia Randle is a 29 year old female. Patient herself was not aware of previous history of anemia. But she said probably she was anemic. Patient said that she has had abnormal menstrual periods all her life. Her periods have been irregular and heavy. On 11/22/2018, she was evaluated at [facility] because of the abnormal menstrual periods. Laboratory tests showed WBC 10.9, hemoglobin 9.7, hematocrit 30.5, MCV 87.9, platelets 378. Iron 83, total iron binding capacity 574, and iron saturation 14%. Patient was prescribed po methergine and Loestrin-Fe. Ultrasound of the pelvis showed thickened heterogeneous endometrium, some med endometrium vascularity of unknown significance, and normal ovaries. Therefore, the patient has been started on oral iron supplementation with iron sulfate 1 pill once a day. Patient tolerated the oral iron pills well. She is also being followed by provider enrollment specialist Jersey Adame. She then started progesterone bid. According to patient, endometrial polyps was suspected. She was seen here on 01/07/2019. She came accompanied by her . She reported significant low energy. She gets out of breath even going up stairs. Her said ?this is incredibly unlike her?. She gets worn out easily. Her HR skyrocketed and jumped up to 150-160. In addition patient also reported low appetite. She denies any swallowing difficulties. She denies any unusual craving. She denies chest pain. She denies any abdominal pain. She denies any blood in the stool. Laboratory tests on 01/01/2019 showed WBC 10.3, hemoglobin 8.2, hematocrit 28.4, MCV 77.6, platelets 490. She has been seen by her provider enrollment specialist. She was started on Previfem (norgestimate-ethynyl estradiol) 1# daily Her vaginal bleeding has stopped. She has some water retention. She underwent venofer infusion 200 mg weekly x 5 form 01/11/2019 through 02/08/2019. She said that she felt a lot better after the iron infusion. She has better energy. She denies shortness of breath and denies chest pain She underwent on 07/01/2019, patient underwent hysteroscopy with MyoSure procedure by Dr. Matias Knight. The pathology showed benign endometrial polyps, background proliferative/disordered proliferative endometrium, and negative for hyperplasia, chronic endometritis, or malignancy. Interim Events Patient presents here today for scheduled follow-up visit. Clinically patient said that she is feeling a little bit more tired than before. Otherwise she denies any unusual craving. She denies shortness of breath or chest pain. She denies any abdominal pain diarrhea or constipation. Treatment Summary 1. Venofer 200 mg iv qw x 5, 01/11/2019 - 02/08/2019 2. Hysteroscopy with MyoSure 07/01/2019 - Patient Self-Reported Symptoms SR Constitution: Weight loss/gain SR eye issues: Vision changes SR ears, nose, mouth, throat issues: Congestion, Cough SR respiratory issues: Shortness of breath SR Cardiovascular issues: Extreme swelling SR Skin issues: Skin color changes SR Gastrointestinal issues: Constipation SR Genitourinary issues: Vaginal bleeding, Discharge SR Musculoskeletal issues: Muscle pain or cramps SR Neuro issues: Headache, Lightheaded/dizzy - Additional ROS All systems PM: reviewed and no additional remarkable complaints except as stated Home Medications and Allergies Home Medications Medication Instructions Recorded Confirmed Type Multi Complete with Iron 1 tab DAILY 06/03/19 08/03/19 History Vitamin B-12 1 tab DAILY 06/03/19 08/03/19 History amlodipine-benazepril 1 cap PO DAILY 06/03/19 08/03/19 History cholecalciferol (vitamin D3) 2,000 unit PO DAILY 06/03/19 08/03/19 History [Vitamin D3] magnesium 400 mg PO DAILY 06/03/19 08/03/19 History omega 5-ogr-ecv-fish oil [Fish Oil] 2 cap PO DAILY 06/03/19 08/03/19 History metformin 1,000 mg PO DAILY 07/06/19 08/03/19 History spironolactone 100 mg PO BID 07/06/19 08/03/19 History Allergies Allergy/AdvReac Type Severity Reaction Status Date / Time No Known Drug Allergies Allergy Verified 03/22/19 19:56 Exam Vital signs: Last Vital Signs Temp 98.4 F 08/03/19 15:55 Pulse 94 H 08/03/19 15:55 Resp 18 08/03/19 15:55 BP 138/86 08/03/19 15:55 Pulse Ox 98 08/03/19 15:55 Narrative: ECOG 1 Gen: WDWN, obese, NAD, pleasant and cooperative. HEENT: NCAT, EOMI, PERRLA, anicteric sclera. Neck: Supple, No palpable thyromegaly or lymphadenopathy. Respiratory: CTAB, no wheezes audible. No JVD Cardiovascular: RRR, S1 and S2 normal, no M/G/R. Abdomen: Soft, NTND, BS normal, no palpable organomegaly Extremities: No LE pitting edema. Lymphatic: no palpable lymph nodes in the neck, axillae Neurological: AOx3, CN II-XII grossly intact. No focal motor or sensory deficit. Psychiatric: normal affect; normal thought process; no depression; no anxiety. Results - Labs Laboratory Last Values WBC 14.3 X10^3/uL (4.5-11.0) H 07/30/19 15:45 RBC 4.80 X10^6/uL (4.0-5.2) 07/30/19 15:45 Hgb 13.7 g/dL (12.0-16.0) 07/30/19 15:45 Hct 41.6 % (36-46) 07/30/19 15:45 MCV 86.6 fL (80-100) 07/30/19 15:45 MCH 28.6 PG (26-34) 07/30/19 15:45 MCHC 33.0 % (30-36) 07/30/19 15:45 RDW 15.1 % (11.6-14.8) H 07/30/19 15:45 Plt Count 432 X10^3/uL (150-400) H 07/30/19 15:45 Neut % (Auto) 76.2 % (50-75) H 07/30/19 15:45 Lymph % (Auto) 17.8 % (25-40) L 07/30/19 15:45 [place] % (Auto) 5.0 % (3-14) 07/30/19 15:45 Eos % (Auto) 0.6 % (2-4) L 07/30/19 15:45 Baso % (Auto) 0.4 % (0-2) 07/30/19 15:45 Neut # (Auto) 18105 /uL (8519-6704) H 07/30/19 15:45 Lymph # (Auto) 2500 /uL (8128-2355) 07/30/19 15:45 [place] # (Auto) 700 /uL (0-900) 07/30/19 15:45 Eos # (Auto) 100 /uL (0-450) 07/30/19 15:45 Baso # (Auto) 100 /uL (0-100) 07/30/19 15:45 RBC Morphology See 02/15/19 12:45 Poikilocytosis 1+ H 02/15/19 12:45 Anisocytosis 3+ H 02/15/19 12:45 Sodium 134 mmol/L (137-145) L 07/30/19 15:45 Potassium 4.6 mmol/L (3.4-5.1) 07/30/19 15:45 Chloride 100 mmol/L (98-107) 07/30/19 15:45 Carbon Dioxide 26 mmol/L (22-32) 07/30/19 15:45 BUN 16 mg/dL (7-17) 07/30/19 15:45 Creatinine 0.60 mg/dL (0.52-1.04) 07/30/19 15:45 Estimated GFR > 60.0 mL/min (>60) 07/30/19 15:45 BUN/Creatinine Ratio 26.7 (6-22) H 07/30/19 15:45 Glucose 96 mg/dL (70-100) 07/30/19 15:45 Calcium 9.5 mg/dL (8.4-10.2) 07/30/19 15:45 Iron 69 ug/dL (37-170) 07/30/19 15:45 TIBC 477 ug/dL (265-497) 07/30/19 15:45 % Saturation 14 % (15-50) L 07/30/19 15:45 Transferrin 398 mg/dL (206-381) H 07/30/19 15:45 Ferritin 11 ng/mL (6-137) 07/30/19 15:45 Total Bilirubin 0.3 mg/dL (0.2-1.3) 07/30/19 15:45 AST 26 IU/L (14-36) 07/30/19 15:45 ALT 52 IU/L (<35) H 07/30/19 15:45 Alkaline Phosphatase 75 U/L (38-126) 07/30/19 15:45 Total Protein 7.5 g/dL (6.3-8.2) 07/30/19 15:45 Albumin 4.4 g/dL (3.5-5.0) 07/30/19 15:45 Globulin 3.1 g/dL (1.7-4.1) 07/30/19 15:45 Albumin/Globulin Ratio 1.4 (1.0-2.8) 07/30/19 15:45 Assessment and Plan (1) Iron (Fe) deficiency anemia Overview: 29 year old with iron deficiency most likely due to menorrhagia. Status post venofer 200 mg iv weekly x 5 in -01/2019. Assessment: I reviewed the labs from 07/30/2019. No microcytic anemia. Her ferritin level however has remained low at 11. But serum iron storage was low. The saturation has improved to 14%. I talked with her that the results indicate rather stable iron storage but at the lower end normal. Clinically no apparent anemia noted. I talked with her that I will continue monitoring the iron storage status in about a month. Most likely she will need iron infusion. Plan: RTC in 1 month, CBC, CMP, iron panel, ferritin Consider Injectafer 750 mg iv weekly x 2 if ferritin decreases. (2) Menorrhagia She has endometrial polyps. She is now status post MyoSure procedure on 07/01/2019. She will continue to follow up with Dr. Hamzah Mike.
--- NOTE | 2019-09-30 12:43 | PC.NURSE ---
Pt called reporting symptoms, increased fatigue, decreased endurance and increased sleep. Per pt, she had initially moved appt to October, but now feels like she needs to be seen sooner. tried to schedule pt for labs and RN visit today, however pt states I can't today I have a personal appointment. Pt scheduled for Friday at 3:30, instructed to go to main lab for draw then come to clinic for results and RN evaluation, pt agreeable and verbalized understanding.
--- NOTE | 2019-09-30 13:16 | ONC.SCHED ---
no PA required for Injectafer for this patient under [facility] but [facility]ia will look into this because the drug is very expensive. The patient is coming in on 10/04/19 per Elaine to review labs.
[2019-10-04 16:15] VITALS: BP 151/95; PULSE 67; RESP 16; TEMP 36.7; O2SAT 98
[2019-10-04 16:55] VITALS: BP 138/92; PULSE 65
--- NOTE | 2019-10-04 16:56 | PC.NURSE ---
Patient arrived to clinic for nurse eval and labwork due to increased fatigue, sleepiness, and increased vaginal spotting. Lab results for iron WNL, still pending for ferritin. Patient instructed to schedule follow-up appointment for this week. Dorina or Liyah to call patient tomorrow.
--- NOTE | 2019-10-05 12:35 | PC.NURSE ---
Dr. Parish reviewed pt's lab results from yesterday. At this time he does not believe her symptoms are related to anemia, he would like her to f/u with primary provider. Spoke with pt and informed her of Dr. Parish's response to labs, pt verbalized understanding and will keep Miriam appt at this time. Pt denies fever. This selling underwriter instructed pt that if symptoms persist or increase she she been seen in ER or urgent care, pt verbalizes understanding. This selling underwriter will fax lab results to pt's PCP, Dr. Couch, per pt's request.
[2019-11-05 16:10] LABS: Add Manual Diff / Slide Review NO; Basophils Absolute Auto 100 /uL (0-100); Basophils Percent Auto 0.6 % (0-2); Eosinophils Absolute Auto 100 /uL (0-450); Eosinophils Percent Auto 0.9 % (2-4); Hematocrit 44.5 % (36-46); Hemoglobin 14.8 g/dL (12.0-16.0); Lymphocytes Absolute Auto 2500 /uL (1100-4500); Lymphocytes Percent Auto 19.7 % (25-40); Mean Corpuscular HGB Conc 33.2 % (30-36); Mean Corpuscular Hemoglobin 30.1 PG (26-34); Mean Corpuscular Volume 90.6 fL (80-100); Monocytes Absolute Auto 800 /uL (0-900); Monocytes Percent Auto 6.4 % (3-14); Neutrophils Absolute Auto 9300 /uL (1500-7000); Neutrophils Percent Auto 72.4 % (50-75); Platelet Count 396 X10^3/uL (150-400); Red Blood Cell Count 4.91 X10^6/uL (4.0-5.2); Red Cell Distribution Width 16.1 % (11.6-14.8); White Blood Cell Count 12.8 X10^3/uL (4.5-11.0)
[2019-11-05 16:22] LABS: Alanine Aminotransferase 38 IU/L (<35); Albumin 4.6 g/dL (3.5-5.0); Albumin Globulin Ratio 1.4 (1.0-2.8); Alkaline Phosphatase 87 U/L (38-126); Aspartate Aminotransferase 33 IU/L (14-36); BUN Creatinine Ratio 23.5 (6-22); Bilirubin Total 0.5 mg/dL (0.2-1.3); Blood Urea Nitrogen 19 mg/dL (7-17); Calcium 9.9 mg/dL (8.4-10.2); Carbon Dioxide 27 mmol/L (22-32); Chloride 97 mmol/L (98-107); Estimated Glomerular Filt Rate > 60.0 mL/min (>60); Globulin 3.3 g/dL (1.7-4.1); Glucose 99 mg/dL (70-100); HEMOLYSIS < 15 (0-50); Potassium 4.4 mmol/L (3.4-5.1); Sodium 133 mmol/L (137-145); Total Protein 7.9 g/dL (6.3-8.2)
[2019-11-05 16:38] LABS: HEMOLYSIS 15 (0-50); Iron 156 ug/dL (37-170)
[2019-11-05 16:48] LABS: Percent Iron Saturation 32 % (15-50); Total Iron Binding Capacity 490 ug/dL (265-497); Transferrin 417 mg/dL (206-381)
[2019-11-05 16:56] LABS: Ferritin 15 ng/mL (6-137)
--- NOTE | 2019-11-08 15:17 | ONC.PN ---
PN -Subjective Interval history: ID/CC: 29 year old with iron deficiency Hemotology History: Alexia Randle is a 29 year old female. Patient herself was not aware of previous history of anemia. But she said probably she was anemic. Patient said that she has had abnormal menstrual periods all her life. Her periods have been irregular and heavy. On 11/22/2018, she was evaluated at [facility] because of the abnormal menstrual periods. Laboratory tests showed WBC 10.9, hemoglobin 9.7, hematocrit 30.5, MCV 87.9, platelets 378. Iron 83, total iron binding capacity 574, and iron saturation 14%. Patient was prescribed po methergine and Loestrin-Fe. Ultrasound of the pelvis showed thickened heterogeneous endometrium, some med endometrium vascularity of unknown significance, and normal ovaries. Therefore, the patient has been started on oral iron supplementation with iron sulfate 1 pill once a day. Patient tolerated the oral iron pills well. She is also being followed by children's program coordinator [place] Adame. She then started progesterone bid. According to patient, endometrial polyps was suspected. She was seen here on 01/07/2019. She came accompanied by her . She reported significant low energy. She gets out of breath even going up stairs. Her said ?this is incredibly unlike her?. She gets worn out easily. Her HR skyrocketed and jumped up to 150-160. In addition patient also reported low appetite. She denies any swallowing difficulties. She denies any unusual craving. She denies chest pain. She denies any abdominal pain. She denies any blood in the stool. Laboratory tests on 01/01/2019 showed WBC 10.3, hemoglobin 8.2, hematocrit 28.4, MCV 77.6, platelets 490. She has been seen by her children's program coordinator. She was started on Previfem (norgestimate-ethynyl estradiol) 1# daily Her vaginal bleeding has stopped. She has some water retention. She underwent venofer infusion 200 mg weekly x 5 form 01/11/2019 through 02/08/2019. She said that she felt a lot better after the iron infusion. She has better energy. She denies shortness of breath and denies chest pain She underwent on 07/01/2019, patient underwent hysteroscopy with MyoSure procedure by Dr. Matias Knight. The pathology showed benign endometrial polyps, background proliferative/disordered proliferative endometrium, and negative for hyperplasia, chronic endometritis, or malignancy. Interim Events Alexia currently is being followed by her primary care provider at [facility]. She was diagnosed with PCOS in May 2019. She is using Microgestin for control. She has been also on treatment including metformin, spironolactone, and amlodipine under the care of her primary care provider. Patient said that her symptoms include dry skins affecting the hands. She uses lotions 5 times a day, and still she noticed cracks in the knuckles. She reports swelling sensation in the face and in the neck. She has constipation and is probably more prominent recently. She also is complaining excessive hair growth. She has not had any new bleeding is since May. Patient under went laboratory tests on 11/05/2019. She presents here today for follow-up. Treatment Summary 1. Venofer 200 mg iv qw x 5, 01/11/2019 - 02/08/2019 2. Hysteroscopy with MyoSure 07/01/2019 - Patient Self-Reported Symptoms SR Constitution: Weight loss/gain SR eye issues: Vision changes SR ears, nose, mouth, throat issues: Congestion, Cough SR respiratory issues: Shortness of breath SR Cardiovascular issues: Extreme swelling SR Skin issues: Skin color changes SR Gastrointestinal issues: Constipation SR Genitourinary issues: Vaginal bleeding, Discharge SR Musculoskeletal issues: Muscle pain or cramps SR Neuro issues: Headache, Lightheaded/dizzy - Additional ROS All systems PM: reviewed and no additional remarkable complaints except as stated Home Medications and Allergies Home Medications Medication Instructions Recorded Confirmed Type Multi Complete with Iron 1 tab DAILY 06/03/19 11/08/19 History Vitamin B-12 1 tab DAILY 06/03/19 11/08/19 History amlodipine-benazepril 1 cap PO DAILY 06/03/19 11/08/19 History cholecalciferol (vitamin D3) 2,000 unit PO DAILY 06/03/19 11/08/19 History [Vitamin D3] magnesium 400 mg PO DAILY 06/03/19 11/08/19 History omega 8-umk-lby-fish oil [Fish Oil] 2 cap PO DAILY 06/03/19 11/08/19 History metformin 1,000 mg PO DAILY 07/06/19 11/08/19 History spironolactone 100 mg PO BID 07/06/19 11/08/19 History norethindrone-e.estradiol-iron 1 tab PO DAILY 11/08/19 11/08/19 History [Microgestin FE 06/14 (28)] Allergies Allergy/AdvReac Type Severity Reaction Status Date / Time No Known Drug Allergies Allergy Verified 03/22/19 19:56 Exam Vital signs: 11/08/19 15:53 Last Vital Signs Temp 98.0 F 11/08/19 15:24 Pulse 77 11/08/19 15:24 Resp 18 11/08/19 15:24 BP 163/104 H 11/08/19 15:24 Pulse Ox 97 11/08/19 15:24 Narrative: ECOG 1 Gen: WDWN, obese, NAD, pleasant and cooperative. HEENT: NCAT, EOMI, PERRLA, anicteric sclera. Neck: Supple, No palpable thyromegaly or lymphadenopathy. Respiratory: CTAB, no wheezes audible. No JVD Cardiovascular: RRR, S1 and S2 normal, no M/G/R. Abdomen: Soft, NTND, BS normal, no palpable organomegaly Extremities: No LE pitting edema. Lymphatic: no palpable lymph nodes in the neck, axillae Neurological: AOx3, CN II-XII grossly intact. No focal motor or sensory deficit. Psychiatric: normal affect; normal thought process; no depression; no anxiety. Results - Labs Laboratory Last Values WBC 12.8 X10^3/uL (4.5-11.0) H 11/05/19 15:48 RBC 4.91 X10^6/uL (4.0-5.2) 11/05/19 15:48 Hgb 14.8 g/dL (12.0-16.0) 11/05/19 15:48 Hct 44.5 % (36-46) 11/05/19 15:48 MCV 90.6 fL (80-100) 11/05/19 15:48 MCH 30.1 PG (26-34) 11/05/19 15:48 MCHC 33.2 % (30-36) 11/05/19 15:48 RDW 16.1 % (11.6-14.8) H 11/05/19 15:48 Plt Count 396 X10^3/uL (150-400) 11/05/19 15:48 Neut % (Auto) 72.4 % (50-75) 11/05/19 15:48 Lymph % (Auto) 19.7 % (25-40) L 11/05/19 15:48 [place] % (Auto) 6.4 % (3-14) 11/05/19 15:48 Eos % (Auto) 0.9 % (2-4) L 11/05/19 15:48 Baso % (Auto) 0.6 % (0-2) 11/05/19 15:48 Neut # (Auto) 9300 /uL (2898-2392) H 11/05/19 15:48 Lymph # (Auto) 2500 /uL (8115-7593) 11/05/19 15:48 [place] # (Auto) 800 /uL (0-900) 11/05/19 15:48 Eos # (Auto) 100 /uL (0-450) 11/05/19 15:48 Baso # (Auto) 100 /uL (0-100) 11/05/19 15:48 RBC Morphology See 02/15/19 12:45 Poikilocytosis 1+ H 02/15/19 12:45 Anisocytosis 3+ H 02/15/19 12:45 Sodium 133 mmol/L (137-145) L 11/05/19 15:48 Potassium 4.4 mmol/L (3.4-5.1) 11/05/19 15:48 Chloride 97 mmol/L (98-107) L 11/05/19 15:48 Carbon Dioxide 27 mmol/L (22-32) 11/05/19 15:48 BUN 19 mg/dL (7-17) H 11/05/19 15:48 Creatinine 0.81 mg/dL (0.52-1.04) 11/05/19 15:48 Estimated GFR > 60.0 mL/min (>60) 11/05/19 15:48 BUN/Creatinine Ratio 23.5 (6-22) H 11/05/19 15:48 Glucose 99 mg/dL (70-100) 11/05/19 15:48 Calcium 9.9 mg/dL (8.4-10.2) 11/05/19 15:48 Iron 156 ug/dL (37-170) 11/05/19 15:48 TIBC 490 ug/dL (265-497) 11/05/19 15:48 % Saturation 32 % (15-50) 11/05/19 15:48 Transferrin 417 mg/dL (206-381) H 11/05/19 15:48 Ferritin 15 ng/mL (6-137) 11/05/19 15:48 Total Bilirubin 0.5 mg/dL (0.2-1.3) 11/05/19 15:48 AST 33 IU/L (14-36) 11/05/19 15:48 ALT 38 IU/L (<35) H 11/05/19 15:48 Alkaline Phosphatase 87 U/L (38-126) 11/05/19 15:48 Total Protein 7.9 g/dL (6.3-8.2) 11/05/19 15:48 Albumin 4.6 g/dL (3.5-5.0) 11/05/19 15:48 Globulin 3.3 g/dL (1.7-4.1) 11/05/19 15:48 Albumin/Globulin Ratio 1.4 (1.0-2.8) 11/05/19 15:48 Assessment and Plan (1) Iron (Fe) deficiency anemia Overview: 29 year old with iron deficiency most likely due to menorrhagia. Status post venofer 200 mg iv weekly x 5 in -01/2019. Assessment: I reviewed the labs from 11/05/2019. No microcytic anemia. Her ferritin level has improved however has remained. Her MCV has normalized. The saturation has improved to 32%. Clinically, she does not have any shortness of breath or chest pain or bleeding events. I talked with her that for iron deficiency, I will continue monitoring. Today I also talked with her about the persistent mild leukocytosis. Only on 1 occasion her total white cell count was normal. I talked with her that I will continue monitoring the leukocytosis. If it shows a persistent rising trend, I will proceed with more evaluation for possible primary hematological disorder. Plan: RTC in 6 month, CBC, CMP, iron panel, ferritin
[2019-11-08 15:24] VITALS: BP 163/104; PULSE 77; RESP 18; TEMP 36.7; O2SAT 97
--- NOTE | 2019-12-28 10:10 | PC.NURSE ---
Addendum entered by Sidney Fuller R.N. 12/28/19 16:38: ordered labs and would like to be notified of them as soon as possible. Please fax labs to [facility] Triage once resulted for review by Dr. Parish. Heidi at [facility] will be anticipating these results. 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 Pt is concerned they are anemic and they are scheduled for neuro-surgery for glioblastoma for December 29 at [facility]. Pt providers: Neuro-surgeon: Dr. Kd Denton, [facility] Dog Track Kennel Manager: Dr. Gage Mtz, [facility] Sent Dr. Parish's triage nurse at [facility] a fax with this information. Awaiting response.
[2019-12-29 13:58] LABS: Add Manual Diff / Slide Review NO; Basophils Absolute Auto 100 /uL (0-100); Basophils Percent Auto 0.6 % (0-2); Eosinophils Absolute Auto 100 /uL (0-450); Hematocrit 40.3 % (36-46); Hemoglobin 13.3 g/dL (12.0-16.0); Lymphocytes Absolute Auto 2300 /uL (1100-4500); Lymphocytes Percent Auto 18.3 % (25-40); Mean Corpuscular HGB Conc 32.9 % (30-36); Mean Corpuscular Hemoglobin 29.9 PG (26-34); Monocytes Absolute Auto 800 /uL (0-900); Monocytes Percent Auto 6.6 % (3-14); Neutrophils Absolute Auto 9100 /uL (1500-7000); Neutrophils Percent Auto 73.5 % (50-75); Platelet Count 424 X10^3/uL (150-400); Red Blood Cell Count 4.43 X10^6/uL (4.0-5.2); Red Cell Distribution Width 14.4 % (11.6-14.8); White Blood Cell Count 12.3 X10^3/uL (4.5-11.0)
[2019-12-29 14:11] LABS: Alanine Aminotransferase 29 IU/L (<35); Albumin 4.1 g/dL (3.5-5.0); Albumin Globulin Ratio 1.6 (1.0-2.8); Alkaline Phosphatase 88 U/L (38-126); Aspartate Aminotransferase 25 IU/L (14-36); BUN Creatinine Ratio 21.5 (6-22); Bilirubin Total 0.4 mg/dL (0.2-1.3); Blood Urea Nitrogen 14 mg/dL (7-17); Calcium 9.4 mg/dL (8.4-10.2); Carbon Dioxide 29 mmol/L (22-32); Chloride 101 mmol/L (98-107); Estimated Glomerular Filt Rate > 60.0 mL/min (>60); Globulin 2.6 g/dL (1.7-4.1); Glucose 127 mg/dL (70-100); HEMOLYSIS < 15 (0-50); Potassium 3.9 mmol/L (3.4-5.1); Sodium 136 mmol/L (137-145); Total Protein 6.7 g/dL (6.3-8.2)
[2019-12-29 14:29] LABS: HEMOLYSIS < 15 (0-50); Iron 46 ug/dL (37-170)
[2019-12-29 14:38] LABS: Percent Iron Saturation 10 % (15-50); Total Iron Binding Capacity 440 ug/dL (265-497); Transferrin 342 mg/dL (206-381)
[2019-12-29 14:46] LABS: Ferritin 8 ng/mL (6-137)
--- NOTE | 2019-12-30 11:42 | PC.NURSE ---
Dr. Parish reviewed pt's lab results, including iron, from most recent blood draw, no new orders received. Notified pt that Dr. Parish is aware of lab results and iron infusion is not required at this time. Pt informed this software writer that she has upcoming surgery hoping for Friday to remove tumor on pituitary or adrenal glands and glioblastoma on my frontal lobe. Pt further reports that glioblastoma has not been confirmed and that pathology is still needed, that's just what they are thinking it might be. Faxed most recent lab results to to Dr. Denton at [phone] per pt's request.
== END ==
PROVIDERS: PCP General Practice; Visit Provider Internal Medicine Hematology & Oncology
DX: D50.9 Iron deficiency anemia, unspecified (principal)
CPT/HCPCS: 36415; 80053; 82728; 83540; 83550; 85025; 96365; 99204; 99214; J1756